=== PATIENT | male | born 1945 | race American Indian/Alaskan Native ===

== ENCOUNTER 2021-12-20 09:29 | Outpatient (CLI) | payer MEDICARE ==
--- NOTE | 2021-12-20 12:01 | Fluoroscopy Report ---
BARIUM SWALLOW Indication: R13.10 DYSPHAGIA. Technique: Single and double contrast barium technique utilized to evaluate the esophagus. FINDINGS: To begin the exam, swallowing was evaluated in the lateral position under direct fluorosco py. Deglutition appears normal. A small Zenker's diverticulum is identified near the level of C6-7 measuring up to 1 cm in greatest d imension. The remainder of the cervical and thoracic esophagus are within normal limits. No evidence for mass, stricture or web. No hiatal hernia was witnessed. There were no abnormal tertiary contracti ons as seen with dysmotility. No gastroesophageal reflux. IMPRESSION: Small Zenker's diverticulum is identified as described. Fluoroscopic time: 4.2 minutes Number of fluoroscopic images: 69 Signer Name: José Miguel Vizcaino Jr, MD Signed: 12/20/2021 11:57 AM Workstation Name: [id number]
== END 2021-12-20 09:30 | disposition home or self-care (01) ==
LOC: FLUORO 09:29
PROVIDERS: ATTEND Otolaryngology
DX: K22.5 Diverticulum of esophagus, acquired (principal)
CPT/HCPCS: 74220

== ENCOUNTER 2022-03-07 06:31 | Day surgery (SDC) | payer MEDICARE ==
[2022-03-07] MEDS: SODIUM CHLORIDE 0.9% 500 ML 500 ML IV SCH ×2 (07:26→08:37)
[2022-03-07 07:27] LABS: BUN/Creatinine Ratio 13; Blood Urea Nitrogen 13 mg/dL (9-20); Calcium 10.2 mg/dL (8.4-10.2); Hemolysis Index 4
[2022-03-07 07:29] LABS: Hematocrit 42.5 % (35.5-45.6); Hemoglobin 13.5 gm/dl (11.8-15.2); Mean Corpuscular HGB Conc 32 % (32-34); Mean Corpuscular Volume 82 fl (84-94); Platelet Count 198 K/mm3 (140-440); Red Blood Count 5.18 M/mm3 (3.65-5.03); Red Cell Distribution Width 14.3 % (13.2-15.2)
[2022-03-07] MEDS ORDERED: ASPIRIN EC 325 MG TAB PO SCH (07:30)
[2022-03-07 07:31] LABS: INR 0.86 (0.87-1.13)
[2022-03-07] MEDS ORDERED: HEPARIN/NS 5000 UNIT/500ML 1,000 ML IR ONE (08:11)
[2022-03-07] MEDS ORDERED: VERAPAMIL 5 MG/2 ML INJ ONE (08:11)
[2022-03-07] MEDS ORDERED: LIDOCAINE (2%) 20 MG/1 ML VIAL 50 ML MDV INFILTRATI ONE (08:11)
[2022-03-07] MEDS ORDERED: NITROGLYCERIN SYRINGE 3 ML ONE (08:11)
[2022-03-07] MEDS ORDERED: HEPARIN 10,000 UNITS/10 ML VIAL ONE (08:11)
[2022-03-07] MEDS ORDERED: LIDOCAINE (1%) 10 MG/1 ML VIAL 20 ML MDV ONE (08:12)
[2022-03-07 08:17] LABS: Total Cells Counted 100
[2022-03-07 08:21] LABS: Large Platelets Rare; Platelet Estimate Consistent w Auto; RBC Morphology Normal
[2022-03-07] MEDS: fentaNYL 100 MCG/2 ML INJ ONE ×2 (08:33→09:00)
[2022-03-07] MEDS: MIDAZOLAM 2 MG/2 ML INJ ONE ×2 (08:34→09:01)
--- NOTE | 2022-03-07 09:49 | Cardiac Catherization Report ---
DATE OF PROCEDURE: 03/07/2022 REFERRING PHYSICIAN: Dr. Dominic Boss and Dr. Abel Marin. INDICATIONS FOR PROCEDURE: The patient is a pleasant 76-year-old -[place] gentleman with severe MR scheduled to undergo mitral valve repair or replacement. He is here for preoperative cardiac catheterization. Risks, benefits and alternatives discussed prior to obtaining informed consent. 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 Chad's test in right hand is normal. Then, 2 mL of 2% lidocaine used to anesthetize the right wrist. A standard 6-Tristanian hydrophilic sheath was used to cannulate the right radial artery via modified Seldinger technique. All exchanges performed to exchange a J-tip guidewire. A JL3.5 catheter was used to engage the left main. No dampening or ventricularization. Cineangiography performed in multiple projections. JR4 catheter used to cross the aortic valve under fluoroscopic guidance. Left ventriculography performed with a 6-Tristanian pigtail catheter in the WHITE projection with a power injector. Next, catheter flushed. Manual pullback performed with continuous monitoring. The JR4 catheter was used to engage the right coronary. No dampening or ventricularization. Cineangiography performed in all projections. Next, catheter removed from the body of wire, sheath removed. Manual pressure used to achieve hemostasis. I directly supervised the administration of moderate sedation with fentanyl and Versed from 9:01-9:20 a.m. No immediate complications. DATA: Aortic pressure is 150/70, LV pressure is 150, LVEDP of 16 mmHg. Left ventriculography reveals normal systolic performance, estimated ejection fraction of 60%-65%, 4+ severe MR is noted. CORONARY ANATOMY: This is a right dominant system. Left main without significant disease, bifurcates into left anterior descending and left circumflex. Left circumflex, moderate sized vessel, courses AV groove. No significant disease. LAD is a moderate sized vessel, courses anterior interventricular groove, wraps around the apex, no significant disease in LAD or diagonal system. Right coronary is a moderate sized vessel, courses AV groove. No significant disease. CONCLUSIONS: 1. No angiographic evidence of significant epicardial coronary artery disease in this right dominant system. 2. Normal left ventricular systolic performance, estimated ejection fraction of 60%-65%. 3. A 4+ severe mitral regurgitation. 4. Normal LVEDP. 5. The patient remained in normal sinus rhythm throughout the procedure. The patient is to follow up with Dr. Marin. Standard radial care. Results of procedure explained to the patient and family at length. All questions and concerns were addressed. Follow up with Dr. Boss in the office. TID: [id number] RECEIPT: [id number] ALYX/SHEN
[2022-03-07] MEDS ORDERED: traMADol 50 MG TAB PO PRN (10:00)
[2022-03-07] MEDS ORDERED: HYDROcodone/ACETAMINOPHEN 5-325 MG TAB PO PRN (10:00)
--- NOTE | 2022-03-07 11:51 | Short Stay Summary ---
Short Stay Documentation Date of service: 03/07/22 - History H&P: obtained from office - Allergies and Medications Current Medications: Allergies ciprofloxacin [From Cipro] Allergy (Verified 03/07/22 06:58) Unknown mesalamine Allergy (Verified 03/07/22 06:59) Unknown sulfasalazine [From Azulfidine] Allergy (Verified 03/07/22 06:56) Vomiting Home Medications Medication Instructions Recorded Confirmed Last Taken Type Bromfenac Sodium [Bromsite] 1 drop OS DAILY 03/07/22 03/07/22 03/06/22 History 1 drop to left eye Losartan [Cozaar] 100 mg PO DAILY 03/07/22 03/07/22 03/06/22 History 100 mg Timolol [Betimol] 1 drop INTRAOCULA DAILY 03/07/22 03/07/22 03/06/22 History 1 drop left eye amLODIPine 5 mg PO DAILY 03/07/22 03/07/22 03/06/22 History 5 mg hydroCHLOROthiazide [HCTZ] 25 mg PO DAILY 03/07/22 03/07/22 03/06/22 History 25 mg Active Medications Hydrocodone Bitart/Acetaminophen (Hydrocodone/Acetaminophen 5-325 Mg Tab) 1 each PO Q4H PRN PRN Reason: Pain, Moderate (4-6) Aspirin (Aspirin Ec 325 Mg Tab) 325 mg PO ONCE@0730 HORTENCIA Stop: 03/07/22 12:30 Last Admin: 03/07/22 07:26 Dose: 325 mg Sodium Chloride (Nacl 0.9% 500 Ml) 500 mls @ 50 mls/hr IV DIRECT HORTENCIA Stop: 03/07/22 16:59 Last Admin: 03/07/22 08:37 Dose: 50 mls/hr Tramadol HCl (Tramadol 50 Mg Tab) 50 mg PO Q4H PRN PRN Reason: Pain, Mild (1-3) - Physical exam Integumentary: other (Right radial cath site clean dry and intact. No bleeding or hematoma noted) - Brief post op/procedure progress note Date of procedure: 03/07/22 Pre-op diagnosis: Severe mitral regurg/mitral valve prolapse Post-op diagnosis: same Anesthesia: local Estimated blood loss: minimal Condition: stable - Hospital course Hospital course: Patient presented to [facility] today for scheduled outpatient heart cath for evaluation of severe mitral regurg/mitral valve prolapse and preoperative cardiac catheterization prior to his mitral valve repair or replacement. Patient tolerated procedure well, no acute complications. Patient be discharged home in stable condition. Right radial cath site clean dry and intact, no bleeding or hematoma noted. Patient to follow-up as scheduled with Dr. Abel Summers - Disposition Condition at discharge: Good Disposition: 01 HOME / SELF CARE / HOMELESS - Discharge Diagnoses (1) Mitral valve prolapse Status: Chronic (2) Mitral regurgitation Status: Chronic (3) Hypertension Status: Chronic (4) Retinal artery occlusion Status: Chronic Short Stay Discharge Plan Activity: no restrictions, advance as tolerated Diet: low fat, low cholesterol, low salt Wound: keep clean and dry, per your surgeon's advice Follow up with: ANTWAN PALMER MD [Primary Care Provider] - 7 Days ABEL SUMMERS MD [Referring] - 03/15/22 7:30 am Forms: CardCath PCI D/C Instructions
[2022-03-07 13:40] VITALS: BP 141/66
--- NOTE | 2022-03-09 12:00 | Electrocardiograph Report ---
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
== END 2022-03-07 06:32 | disposition home or self-care (01) ==
LOC: CATHLABREC 06:31
PROVIDERS: ATTEND Internal Medicine
DX: I34.0 Nonrheumatic mitral (valve) insufficiency (principal); I34.1 Nonrheumatic mitral (valve) prolapse; I10 Essential (primary) hypertension; H34.9 Unspecified retinal vascular occlusion; M19.90 Unspecified osteoarthritis, unspecified site; Z88.8 Allergy status to other drugs, medicaments and biological substances; Z79.899 Other long term (current) drug therapy; Z87.891 Personal history of nicotine dependence; Z98.49 Cataract extraction status, unspecified eye; Z98.890 Other specified postprocedural states; Z82.49 Family history of ischemic heart disease and other diseases of the circulatory system
CPT/HCPCS: 36415; 80048; 85025; 85610; 85730; 93005; 93458; 99156; C1894; J1644; J1815; J2250; J3010; J3490; J7040; 85007; Q9967